=== PATIENT | female | born 1975 | race Caucasian/White ===

== ENCOUNTER 2017-07-02 14:08 | Emergency (ER) | payer BC ==
[~2017-07-02] VITALS: Ht 157.5 cm; Wt 128.5 kg
[2017-07-02 14:24] LABS: INTER. NORMALIZED RATIO 1.1
[2017-07-02 14:26] LABS: AMYLASE 51 IU/L (1-118)
[2017-07-02 14:27] LABS: PTT 26.3 SEC (25-37)
[2017-07-02 14:35] LABS: LIPASE 25 U/L (1.0-51.0)
[2017-07-02 14:41] LABS: TROP-I INTERPRETATION NEGATIVE; TROPONIN-I < 0.01 ng/mL (0.0-0.30)
[2017-07-02 16:13] LABS: BASOPHIL (%) 0.3 % (0-1); EOSINOPHIL (%) 0.3 % (0-5); HEMATOCRIT 41.8 % (36.0-46.0); IMMATURE GRANULOCYTE (%) 0.5 % (0.0-0.7); LYMPHOCYTE (%) 8.3 % (15-42); MCH 26.5 PG (29.0-34.0); MCHC 31.1 G/DL (30.0-36.0); MCV 85.3 FL (83-99); MONOCYTE (%) 1.5 % (3-12); MONOCYTE COUNT 0.2 K/uL (0-0.8); NEUTROPHIL (%) 89.1 % (45-76); NEUTROPHIL COUNT 10.7 K/uL (1.8-6.4); PLATELET COUNT 238 K/uL (156-360); RBC DIS.WIDTH-CV 15.7 % (11.8-14.6); RBC DIS.WIDTH-SD 48.6 % (39-53)
[2017-07-02 16:17] LABS: ALBUMIN 3.8 g/dL (3.2-4.8)
[2017-07-02 16:18] LABS: CHLORIDE 104 mEq/L (99-109); POTASSIUM 4.4 mEq/L (3.7-5.4); SODIUM 140 mEq/L (136-147)
[2017-07-02 16:20] LABS: GLUCOSE 119 mg/dL (70-99)
[2017-07-02 16:22] LABS: TOTAL BILIRUBIN 0.3 mg/dL (0.0-1.0)
[2017-07-02 16:23] LABS: ALKALINE PHOSPHATASE 64 IU/L (3-129)
[2017-07-02 16:24] LABS: CREATININE 0.8 mg/dL (0.6-1.3); GFR ESTIMATE (CALCULATED) > 59 mL/min/
[2017-07-02 16:25] LABS: AST (GOT) 15 IU/L (2-34); UREA NITROGEN (BUN) 13 mg/dL (9-23)
[2017-07-02 16:26] LABS: ALT (GPT) 19 IU/L (3-49)
[2017-07-02 18:00] VITALS: BP 135/94
== END 2017-07-02 18:22 | disposition home or self-care (01) ==
LOC: EME 14:08
DX: R56.9 Unspecified convulsions (principal); R53.1 Weakness; Z98.890 Other specified postprocedural states; F17.200 Nicotine dependence, unspecified, uncomplicated; Z88.1 Allergy status to other antibiotic agents
CPT/HCPCS: 70450; 70496; 70498; 80053; 82150; 83690; 84484; 85025; 85610; 85730; 93005; 99281; 99285